=== PATIENT | male | born 1945 | race Caucasian/White ===

== ENCOUNTER 2021-12-15 17:48 | Inpatient (IN) | payer OTHER ==
[~2021-12-15] VITALS: Ht 180.3 cm; Wt 102.1 kg
[2021-12-15 18:52] LABS: BASOPHILS % (AUTO) 0.5 % (0.0-5.0); EOSINOPHILS % (AUTO) 0.5 % (0.0-8.0); HEMATOCRIT 31.1 % (36-48); LYMPHOCYTES % (AUTO) 3.4 % (21.0-51.0); MEAN CORPUSCULAR HEMOGLOBIN 27.6 pg (27.0-33.0); MEAN CORPUSCULAR HGB CONC 31.2 g/dL (32.0-36.0); MEAN CORPUSCULAR VOLUME 88.4 fL (79-99); MONOCYTES % (AUTO) 7.6 % (3.0-13.0); NEUTROPHILS % (AUTO) 87.3 % (40.0-77.0); PLATELET COUNT (AUTO) 215 K/uL (130-400); RED BLOOD CELL COUNT(AUTO) 3.52 MIL/uL (4.00-5.50); RED CELL DISTRIBUTION WIDTH 14.6 % (11.0-15.5); WHITE BLOOD COUNT (AUTO) 9.8 K/uL (4.8-10.8)
[2021-12-15 19:03] LABS: INR 1.16 (0.85-1.15); PROTHROMBIN TIME 12.5 SEC (9.6-11.6)
[2021-12-15 19:04] LABS: PARTIAL THROMBOPLASTIN TIME 31.3 SEC (26.3-35.5)
[2021-12-15 19:09] LABS: CREATININE 1.4 mg/dL (0.5-1.5); POTASSIUM 4.4 mmol/L (3.5-5.1)
[2021-12-15 19:11] LABS: ALBUMIN 3.1 g/dL (3.5-5.0); BILIRUBIN,TOTAL 0.7 mg/dL (0.2-1.0); MAGNESIUM 2.2 mg/dL (1.80-2.40)
[2021-12-15 19:19] LABS: B-TYPE NATRIURETIC PEPTIDE 717 pg/mL (0-100)
[2021-12-15] MEDS ORDERED: POTASSIUM CHLORIDE 20MEQ/100ML 100 ML IV PRN (20:00)
[2021-12-15] MEDS ORDERED: LIDOCAINE HCL-MPF 1% 2ML VIAL IJ PRN (20:00)
[2021-12-15] MEDS: FUROSEMIDE 40MG VIAL IV SCH (20:00)
[2021-12-15] MEDS ORDERED: POTASSIUM CHLORIDE 10% ELIXIR 20 MEQ/15 ML UDCUP PO PRN (20:00)
[2021-12-15] MEDS ORDERED: KCL 20 MEQ ERTAB PO PRN (20:00)
[2021-12-15] MEDS ORDERED: DEXTROSE 50%-WATER 50 ML DISP.SYRIN IV PRN (20:00)
[2021-12-15 20:26] LABS: APPEARANCE,URINE Clear (CLEAR); BILIRUBIN,URINE Negative (NEGATIVE); COLOR,URINE Yellow (YELLOW); GLUCOSE, URINE (UA) Negative (NEGATIVE); KETONES,URINE Negative (NEGATIVE); LEUKOCYTE ESTERASE ,URINE Trace (NEGATIVE); NITRATE,URINE Negative (NEGATIVE); OCCULT BLOOD,URINE Negative (NEGATIVE); PH,URINE 5.5 (5.0-8.0); PROTEIN,URINE POS 1+ mg/dL (NEGATIVE); UROBILINOGEN,URINE 0.2 mg/dL (0.2-1.0)
[2021-12-15] MEDS: ZOSYN 3.375GM +NS 50ML IV SCH (20:30)
[2021-12-15 20:40] LABS: BACTERIA,URINE Rare /HPF (None Seen); RBC,URINE 0-1 /HPF (0-1)
[2021-12-15 20:41] LABS: SQUAMOUS EPITHELIAL CELL,UR Few /HPF (0-2)
[2021-12-15] MEDS: SIMVASTATIN 20 MG TABLET PO SCH (21:00)
[2021-12-15] MEDS: INSULIN R PO SS1 SQ SCH (21:00)
[2021-12-15] MEDS: PANTOPRAZOLE 40 MG/VIAL IVP SCH (21:00)
[2021-12-15] MEDS ORDERED: 0.9%NACL 50ML 50 ML IV ONE (21:22)
[2021-12-15] MEDS ORDERED: 0.9% NACL 250ML 250 ML ONE (21:24)
[2021-12-15 21:30] VITALS: BP 123/65
[2021-12-15] MEDS: ACETAMINOPHEN 325 MG TAB PO PRN (23:00)
[2021-12-15 23:30] VITALS: BP 82/42
[2021-12-16] VITALS (24 sets, daily range): BP systolic 73–155; BP diastolic 39–71
[2021-12-16] MEDS ORDERED: TAMS-1 PO (03:10)
[2021-12-16] MEDS ORDERED: SIMV80TA91 PO (03:10)
[2021-12-16] MEDS ORDERED: FURO80TA3 PO (03:10)
[2021-12-16] MEDS ORDERED: NAPR-1023 PO (03:10)
[2021-12-16] MEDS ORDERED: FINA5TAB41 PO (03:10)
[2021-12-16] MEDS ORDERED: NITR100C9 PO (03:10)
[2021-12-16] MEDS ORDERED: DOCU-280 PO (03:10)
[2021-12-16] MEDS ORDERED: FERR-72 PO (03:10)
[2021-12-16] MEDS ORDERED: LATA7.5D OP (03:10)
[2021-12-16] MEDS ORDERED: CEFD300C3 PO (03:10)
[2021-12-16] MEDS ORDERED: ASPI-449 PO (03:10)
[2021-12-16] MEDS ORDERED: POTA20PA32 PO (03:10)
[2021-12-16] MEDS ORDERED: GABA-533 PO (03:10)
[2021-12-16] MEDS ORDERED: METO-409 PO (03:10)
[2021-12-16] MEDS ORDERED: POTA-202 PO (03:10)
[2021-12-16] MEDS: FUROSEMIDE 40MG VIAL IV SCH (05:13)
[2021-12-16] MEDS ORDERED: 0.9%NACL 50ML 50 ML IV ONE (05:18)
[2021-12-16] MEDS: ZOSYN 3.375GM +NS 50ML IV SCH (05:30)
[2021-12-16 05:32] LABS: % IRON SATURATION 3.3 % (22-44)
[2021-12-16 05:36] LABS: MEAN CORPUSCULAR HEMOGLOBIN 27.4 pg (27.0-33.0); MEAN CORPUSCULAR HGB CONC 31.9 g/dL (32.0-36.0); PLATELET COUNT (AUTO) 175 K/uL (130-400); RED BLOOD CELL COUNT(AUTO) 3.14 MIL/uL (4.00-5.50); RED CELL DISTRIBUTION WIDTH 14.4 % (11.0-15.5); WHITE BLOOD COUNT (AUTO) 14.3 K/uL (4.8-10.8)
[2021-12-16 05:48] LABS: ALBUMIN 2.6 g/dL (3.5-5.0); BILIRUBIN,TOTAL 0.8 mg/dL (0.2-1.0); CREATININE 1.7 mg/dL (0.5-1.5); MAGNESIUM 2.2 mg/dL (1.80-2.40); POTASSIUM 4.6 mmol/L (3.5-5.1); THYROID STIMULATING HORMONE 0.08 uIU/mL (0.36-3.74)
[2021-12-16 05:57] LABS: BAND NEUTROPHILS % (MANUAL) 3 % (0-2); EOSINOPHILS % (MANUAL) 1 % (1-6); LYMPHOCYTES % (MANUAL) 3 % (22-44); MAN.DIFF COMMENT-IMPRESSION MANUAL DIFFERENTIAL; MONOCYTES % (MANUAL) 7 % (2-9); SEGMENTED NEUTROPHILS % 86 % (40-70)
[2021-12-16 05:58] LABS: PLATELET MORPHOLOGY COMMENT ADEQUATE
[2021-12-16] MEDS: ACETAMINOPHEN 325 MG TAB PO PRN ×2 (06:11→12:33)
[2021-12-16] MEDS: INSULIN R PO SS1 SQ SCH ×4 (06:12→21:00)
[2021-12-16] MEDS ORDERED: VANCOMYCIN PROTOCOL PER PHARMACY IV SCH (08:30)
[2021-12-16] MEDS: PANTOPRAZOLE 40 MG/VIAL IVP SCH ×2 (08:37→20:41)
[2021-12-16] MEDS ORDERED: NOREPINEPHRIN 4MG/NS 250ML 250 ML IV SCH (09:00)
[2021-12-16] MEDS ORDERED: COMPOUND IV REFRIGERATED 1 EACH IVSOLN MISC PRN (09:00)
[2021-12-16] MEDS ORDERED: METOPROLOL SUCCINATE 50 MG TAB.SR.24H PO SCH (09:00)
[2021-12-16] MEDS: MEROPENEM 1 GM VIAL IVP SCH ×2 (10:25→20:41)
[2021-12-16] MEDS: VANCOMYCIN 1.25GM/NS 250ML IVPB SCH ×2 (10:27)
[2021-12-16 12:12] LABS: HEMATOCRIT 28.2 % (36-48)
[2021-12-16] MEDS: SIMVASTATIN 20 MG TABLET PO SCH (20:41)
[2021-12-17] VITALS (35 sets, daily range): BP systolic 95–137; BP diastolic 36–68
[2021-12-17] MEDS: ACETAMINOPHEN 325 MG TAB PO PRN ×3 (02:24→23:11)
[2021-12-17 06:17] LABS: BASOPHILS % (AUTO) 0.3 % (0.0-5.0); HEMATOCRIT 26.2 % (36-48); LYMPHOCYTES % (AUTO) 1.8 % (21.0-51.0); MEAN CORPUSCULAR HEMOGLOBIN 27.8 pg (27.0-33.0); MEAN CORPUSCULAR HGB CONC 33.2 g/dL (32.0-36.0); MEAN CORPUSCULAR VOLUME 83.7 fL (79-99); MONOCYTES % (AUTO) 3.3 % (3.0-13.0); NEUTROPHILS % (AUTO) 92.9 % (40.0-77.0); PLATELET COUNT (AUTO) 140 K/uL (130-400); RED BLOOD CELL COUNT(AUTO) 3.13 MIL/uL (4.00-5.50); RED CELL DISTRIBUTION WIDTH 14.6 % (11.0-15.5); WHITE BLOOD COUNT (AUTO) 12.6 K/uL (4.8-10.8)
[2021-12-17] MEDS: INSULIN R PO SS1 SQ SCH ×4 (06:33→20:30)
[2021-12-17 06:36] LABS: ALBUMIN 2.4 g/dL (3.5-5.0); BILIRUBIN,TOTAL 0.8 mg/dL (0.2-1.0); CREATININE 1.6 mg/dL (0.5-1.5); MAGNESIUM 2.2 mg/dL (1.80-2.40); POTASSIUM 4.3 mmol/L (3.5-5.1); TOTAL PROTEIN, SERUM 6.8 g/dL (6.0-8.3)
[2021-12-17 06:49] LABS: CRP QUANTITATIVE 238.8 mg/L (0.00-9.0)
[2021-12-17] MEDS: PANTOPRAZOLE 40 MG/VIAL IVP SCH ×2 (08:54→20:29)
[2021-12-17] MEDS: MEROPENEM 1 GM VIAL IVP SCH ×2 (08:54→20:29)
[2021-12-17] MEDS: VANCOMYCIN 1.25GM/NS 250ML IVPB SCH ×2 (08:54)
[2021-12-17] MEDS ORDERED: ALBUMIN (HUMAN) 25% 100 ML IV ONE (15:30)
[2021-12-17] MEDS: MIDODRINE HCL 5 MG TABLET PO SCH ×2 (15:38→20:29)
[2021-12-17] MEDS: IPRATROPIUM/ALBUTEROL SULFATE 3 ML SOLUTION IH SCH ×2 (18:39→23:10)
[2021-12-17] MEDS: SIMVASTATIN 20 MG TABLET PO SCH (20:29)
[2021-12-18] VITALS (29 sets, daily range): BP systolic 99–142; BP diastolic 37–65
[2021-12-18] MEDS: INSULIN R PO SS1 SQ SCH ×4 (06:09→20:04)
[2021-12-18 06:11] LABS: BASOPHILS % (AUTO) 0.3 % (0.0-5.0); HEMATOCRIT 24.3 % (36-48); LYMPHOCYTES % (AUTO) 7.8 % (21.0-51.0); MEAN CORPUSCULAR HEMOGLOBIN 27.2 pg (27.0-33.0); MEAN CORPUSCULAR HGB CONC 31.7 g/dL (32.0-36.0); MEAN CORPUSCULAR VOLUME 85.9 fL (79-99); MONOCYTES % (AUTO) 7.1 % (3.0-13.0); NEUTROPHILS % (AUTO) 81.2 % (40.0-77.0); PLATELET COUNT (AUTO) 114 K/uL (130-400); RED BLOOD CELL COUNT(AUTO) 2.83 MIL/uL (4.00-5.50); RED CELL DISTRIBUTION WIDTH 14.7 % (11.0-15.5); WHITE BLOOD COUNT (AUTO) 9.4 K/uL (4.8-10.8)
[2021-12-18 06:25] LABS: ALBUMIN 2.3 g/dL (3.5-5.0); BILIRUBIN,TOTAL 0.7 mg/dL (0.2-1.0); CREATININE 1.5 mg/dL (0.5-1.5); MAGNESIUM 2.4 mg/dL (1.80-2.40); POTASSIUM 3.9 mmol/L (3.5-5.1); TOTAL PROTEIN, SERUM 6.3 g/dL (6.0-8.3)
[2021-12-18] MEDS: IPRATROPIUM/ALBUTEROL SULFATE 3 ML SOLUTION IH SCH ×4 (06:25→23:37)
[2021-12-18 06:36] LABS: CRP QUANTITATIVE 209.6 mg/L (0.00-9.0)
[2021-12-18] MEDS: ACETAMINOPHEN 325 MG TAB PO PRN (06:57)
[2021-12-18] MEDS: MEROPENEM 1 GM VIAL IVP SCH ×2 (08:38→20:02)
[2021-12-18] MEDS: PANTOPRAZOLE 40 MG/VIAL IVP SCH ×2 (08:38→20:02)
[2021-12-18] MEDS: MIDODRINE HCL 5 MG TABLET PO SCH ×3 (08:39→20:02)
[2021-12-18] MEDS: VANCOMYCIN 1.25GM/NS 250ML IVPB SCH ×2 (08:41)
[2021-12-18] MEDS ORDERED: PHARMACY COMMUNICATION MISC SCH (11:00)
[2021-12-18] MEDS: SIMVASTATIN 20 MG TABLET PO SCH (20:03)
[2021-12-19] VITALS (15 sets, daily range): BP systolic 105–148; BP diastolic 43–91
[2021-12-19] MEDS: ACETAMINOPHEN 325 MG TAB PO PRN ×2 (00:59→14:57)
[2021-12-19] MEDS: IPRATROPIUM/ALBUTEROL SULFATE 3 ML SOLUTION IH SCH (06:00)
[2021-12-19] MEDS: INSULIN R PO SS1 SQ SCH ×4 (06:20→21:00)
[2021-12-19 07:56] LABS: HEMATOCRIT 25.1 % (36-48)
[2021-12-19] MEDS: ASPIRIN 81 MG EC TAB PO SCH (08:10)
[2021-12-19] MEDS: MEROPENEM 1 GM VIAL IVP SCH ×3 (08:25→23:46)
[2021-12-19] MEDS: MIDODRINE HCL 5 MG TABLET PO SCH ×3 (08:25→21:06)
[2021-12-19] MEDS: PANTOPRAZOLE 40 MG/VIAL IVP SCH ×2 (08:25→21:07)
[2021-12-19] MEDS ORDERED: LIDOCAINE HCL 2% VISCOUS 15 ML UDCUP PO SCH (08:30)
[2021-12-19] MEDS ORDERED: FENTANYL CITRATE PF 50 MCG/1 ML 2ML VIAL IVP SCH (08:30)
[2021-12-19] MEDS ORDERED: MIDAZOLAM HCL 1 MG/ML 2ML VIAL IVP SCH (08:30)
[2021-12-19] MEDS: VANCOMYCIN 1.25GM/NS 250ML IVPB SCH ×2 (08:45)
[2021-12-19] MEDS ORDERED: IPRATROPIUM/ALBUTEROL SULFATE 3 ML SOLUTION IH PRN (10:00)
[2021-12-19] MEDS ORDERED: LIDOCAINE HCL 2% VISCOUS 15 ML UDCUP ONE (11:46)
[2021-12-19] MEDS ORDERED: 0.9%NACL 1000ML 1,000 ML IV ONE (12:27)
[2021-12-19 12:59] LABS: CREATININE 1.3 mg/dL (0.5-1.5)
[2021-12-19] MEDS: FUROSEMIDE 20MG VIAL IV SCH (18:28)
[2021-12-19] MEDS: SIMVASTATIN 20 MG TABLET PO SCH (21:05)
[2021-12-20 01:11] VITALS: BP 122/68
[2021-12-20 03:58] VITALS: BP 126/57
[2021-12-20] MEDS: FUROSEMIDE 20MG VIAL IV SCH ×2 (05:30→18:11)
[2021-12-20] MEDS: INSULIN R PO SS1 SQ SCH ×4 (06:42→21:00)
[2021-12-20 07:26] LABS: HEMATOCRIT 25.6 % (42-54); MEAN CORPUSCULAR HEMOGLOBIN 27.2 pg (27.0-33.0); MEAN CORPUSCULAR VOLUME 84.8 fL (79-99); PLATELET COUNT (AUTO) 120 K/uL (130-400); RED BLOOD CELL COUNT(AUTO) 3.02 MIL/uL (4.50-6.20); RED CELL DISTRIBUTION WIDTH 14.7 % (11.0-15.5); WHITE BLOOD COUNT (AUTO) 8.5 K/uL (4.8-10.8)
[2021-12-20 07:42] LABS: ALBUMIN 2.5 g/dL (3.5-5.0); BILIRUBIN,TOTAL 1.1 mg/dL (0.2-1.0); CREATININE 1.3 mg/dL (0.5-1.5); POTASSIUM 3.9 mmol/L (3.5-5.1); TOTAL PROTEIN, SERUM 6.9 g/dL (6.0-8.3)
[2021-12-20 07:46] LABS: EOSINOPHILS % (MANUAL) 5 % (1-6); LYMPHOCYTES % (MANUAL) 10 % (22-44); MAN.DIFF COMMENT-IMPRESSION MANUAL DIFFERENTIAL; MONOCYTES % (MANUAL) 6 % (2-9); SEGMENTED NEUTROPHILS % 79 % (40-70)
[2021-12-20 07:47] LABS: PLATELET MORPHOLOGY COMMENT SLIGHTLY DECREASED
[2021-12-20 08:00] VITALS: BP 126/54
[2021-12-20] MEDS: ASPIRIN 81 MG EC TAB PO SCH (10:06)
[2021-12-20] MEDS: PANTOPRAZOLE 40 MG/VIAL IVP SCH ×2 (10:06→20:54)
[2021-12-20] MEDS: MIDODRINE HCL 5 MG TABLET PO SCH ×2 (10:06→14:00)
[2021-12-20] MEDS: MEROPENEM 1 GM VIAL IVP SCH ×2 (10:06→16:56)
[2021-12-20 12:00] VITALS: BP 135/56
[2021-12-20 16:00] VITALS: BP 138/66
[2021-12-20] MEDS: HEPARIN 5,000 UNIT VIAL SQ SCH (16:57)
[2021-12-20 19:43] VITALS: BP 135/73
[2021-12-20] MEDS: SIMVASTATIN 20 MG TABLET PO SCH (20:52)
[2021-12-21 00:28] VITALS: BP 129/61
[2021-12-21] MEDS: MEROPENEM 1 GM VIAL IVP SCH ×2 (00:42→10:06)
[2021-12-21 04:19] VITALS: BP 150/63
[2021-12-21] MEDS: HEPARIN 5,000 UNIT VIAL SQ SCH ×2 (04:30→16:47)
[2021-12-21] MEDS: FUROSEMIDE 20MG VIAL IV SCH (05:40)
[2021-12-21] MEDS: INSULIN R PO SS1 SQ SCH (07:23)
[2021-12-21 08:00] VITALS: BP 147/68
[2021-12-21 08:31] LABS: INR 1.22 (0.85-1.15); PROTHROMBIN TIME 13.1 SEC (9.6-11.6)
[2021-12-21 08:33] LABS: PARTIAL THROMBOPLASTIN TIME 35.5 SEC (26.3-35.5)
[2021-12-21 09:29] LABS: CREATININE 1.2 mg/dL (0.5-1.5); POTASSIUM 3.1 mmol/L (3.5-5.1)
[2021-12-21] MEDS: ASPIRIN 81 MG EC TAB PO SCH (10:03)
[2021-12-21] MEDS: PANTOPRAZOLE 40 MG/VIAL IVP SCH (10:04)
[2021-12-21 11:59] VITALS: BP_SYST 101; BP_SYST 139; BP_DIAS 58; BP_DIAS 69
[2021-12-21] MEDS ORDERED: FUROSEMIDE 20MG VIAL IV SCH (12:30)
[2021-12-21 16:00] VITALS: BP 168/75
[2021-12-21 19:30] VITALS: BP 140/71
[2021-12-22] MEDS ORDERED: FUROSEMIDE 20 MG TABLET PO SCH (09:00)
[2021-12-25] MEDS ORDERED: MERO1PIG IV (07:57)
[2021-12-25] MEDS ORDERED: ATOR20TA PO (07:57)
[2021-12-25] MEDS ORDERED: FURO20I IV (07:57)
[2021-12-25] MEDS ORDERED: BISA5TAB12 PO (07:57)
== END 2021-12-21 19:53 | DRG 871 ==
LOC: EDH 17:48 → EDHIP 17:49 → EDSEX 17:49 → 2AH 20:44 → 2DH 12-16 09:41
PROVIDERS: ADMIT Internal Medicine; ATTEND Internal Medicine
PROC: 5A09357 Assistance with Respiratory Ventilation, Less than 24 Consecutive Hours, Continuous Positive Airway Pressure (ICD-10-PCS; principal; 2021-12-16)
PROC: 5A09357 Assistance with Respiratory Ventilation, Less than 24 Consecutive Hours, Continuous Positive Airway Pressure (ICD-10-PCS; 2021-12-17)
PROC: 5A09357 Assistance with Respiratory Ventilation, Less than 24 Consecutive Hours, Continuous Positive Airway Pressure (ICD-10-PCS; 2021-12-18)
PROC: 5A09357 Assistance with Respiratory Ventilation, Less than 24 Consecutive Hours, Continuous Positive Airway Pressure (ICD-10-PCS; 2021-12-19)
PROC: B246ZZ4 Ultrasonography of Right and Left Heart, Transesophageal (ICD-10-PCS; 2021-12-19)
DX: A41.50 Gram-negative sepsis, unspecified (principal); I50.33 Acute on chronic diastolic (congestive) heart failure; R65.21 Severe sepsis with septic shock; I33.0 Acute and subacute infective endocarditis; N17.9 Acute kidney failure, unspecified; N39.0 Urinary tract infection, site not specified; Z16.24 Resistance to multiple antibiotics; E87.1 Hypo-osmolality and hyponatremia; T82.6XXA Infection and inflammatory reaction due to cardiac valve prosthesis, initial encounter; I11.0 Hypertensive heart disease with heart failure; D64.9 Anemia, unspecified; E78.5 Hyperlipidemia, unspecified; I44.1 Atrioventricular block, second degree; I48.0 Paroxysmal atrial fibrillation; J44.9 Chronic obstructive pulmonary disease, unspecified; I25.10 Atherosclerotic heart disease of native coronary artery without angina pectoris; B96.1 Klebsiella pneumoniae [K. pneumoniae] as the cause of diseases classified elsewhere; R53.81 Other malaise; E87.6 Hypokalemia; Y83.1 Surgical operation with implant of artificial internal device as the cause of abnormal reaction of the patient, or of later complication, without mention of misadventure at the time of the procedure; E66.9 Obesity, unspecified; Z68.31 Body mass index [BMI] 31.0-31.9, adult; Z79.2 Long term (current) use of antibiotics; Z95.3 Presence of xenogenic heart valve; Z87.440 Personal history of urinary (tract) infections; Y92.89 Other specified places as the place of occurrence of the external cause
CPT/HCPCS: 36415; 71045; 74176; 76770; 80048; 80053; 80061; 80202; 81001; 82728; 82948; 83010; 83036; 83540; 83550; 83605; 83615; 83735; 83880; 84145; 84439; 84443; 84481; 85014; 85018; 85025; 85045; 85610; 85651; 85730; 86140; 86850; 86900; 86901; 87040; 87077; 87088; 87186; 87635; 87804; 93005; 93306; 93312; 93970; 94640; 94664; 99152; 99153; C9113; G0378; J1644; J1815; J1940; J2185; J2250; J2543; J3010; J3370; J3490; J7030; J7050; P9046

== ENCOUNTER 2022-02-06 22:22 | Inpatient (IN) | payer MEDICARE, OTHER ==
[~2022-02-06] VITALS: Ht 154.9 cm; Wt 93.6 kg
[~2022-02-06 22:22] MED LIST: ASPI-449 PO; ATOR20TA PO; BISA5TAB12 PO; DOCU-280 PO; FINA5TAB41 PO; FURO20I IV; GABA-533 PO; LATA7.5D OP; MERO1PIG IV; POTA-202 PO; TAMS-1 PO
[2022-02-06 22:50] VITALS: BP 148/88
[2022-02-06] MEDS ORDERED: POTA-183 PO (23:38)
[2022-02-06] MEDS ORDERED: PANT40TA55 PO (23:38)
[2022-02-06] MEDS ORDERED: MERO500V23 IV (23:38)
[2022-02-06] MEDS ORDERED: DOCU-116 PO (23:38)
[2022-02-06] MEDS ORDERED: LOPE2CAP PO (23:38)
[2022-02-06] MEDS ORDERED: CHOL1CRY2 MC (23:38)
[2022-02-06] MEDS ORDERED: GUAI5LIQ10 PO (23:38)
[2022-02-06] MEDS ORDERED: LACT10SO9 PO (23:38)
[2022-02-06] MEDS ORDERED: TAMS-1 PO (23:38)
[2022-02-06] MEDS ORDERED: TRAM50TA4 PO (23:38)
[2022-02-06] MEDS ORDERED: SIME80TA12 PO (23:38)
[2022-02-06] MEDS ORDERED: SENN8.6T32 PO (23:38)
[2022-02-06] MEDS ORDERED: ALBUHFA IH (23:38)
[2022-02-06] MEDS ORDERED: FURO40TA7 PO (23:38)
[2022-02-06] MEDS ORDERED: BISA10SU61 RC (23:38)
[2022-02-06] MEDS ORDERED: ACET650T24 PO (23:38)
[2022-02-06] MEDS ORDERED: ONDA22I IM (23:38)
[2022-02-06] MEDS ORDERED: VITS42.53 TP (23:38)
[2022-02-06] MEDS ORDERED: ATOR20TA65 PO (23:38)
[2022-02-06 23:43] VITALS: BP 112/66
[2022-02-07] MEDS ORDERED: ACETAMINOPHEN 650 MG PO PRN
[2022-02-07] MEDS ORDERED: DOCUSATE SODIUM 100 MG CAP PO PRN
[2022-02-07] MEDS ORDERED: LACTULOSE 20 GM/30 ML UDCUP PO PRN
[2022-02-07] MEDS ORDERED: FUROSEMIDE 40MG VIAL IV ONE
[2022-02-07 00:20] LABS: POTASSIUM 3.6 mmol/L (3.5-5.1)
[2022-02-07] MEDS: MEROPENEM 500 MG VIAL IV SCH ×4 (00:22→17:54)
[2022-02-07 00:25] LABS: ALBUMIN 2.8 g/dL (3.5-5.0); TOTAL PROTEIN, SERUM 6.8 g/dL (6.0-8.3)
[2022-02-07 00:30] LABS: BASOPHILS % (AUTO) 0.9 % (0.0-5.0); EOSINOPHILS % (AUTO) 2.9 % (0.0-8.0); HEMATOCRIT 29.8 % (42-54); LYMPHOCYTES % (AUTO) 13.1 % (21.0-51.0); MEAN CORPUSCULAR HEMOGLOBIN 27.1 pg (27.0-33.0); MEAN CORPUSCULAR HGB CONC 31.2 g/dL (32.0-36.0); MEAN CORPUSCULAR VOLUME 86.9 fL (79-99); MONOCYTES % (AUTO) 16.2 % (3.0-13.0); NEUTROPHILS % (AUTO) 66.6 % (40.0-77.0); PLATELET COUNT (AUTO) 293 K/uL (130-400); RED BLOOD CELL COUNT(AUTO) 3.43 MIL/uL (4.50-6.20); RED CELL DISTRIBUTION WIDTH 15.9 % (11.0-15.5); WHITE BLOOD COUNT (AUTO) 5.9 K/uL (4.8-10.8)
[2022-02-07 00:40] LABS: B-TYPE NATRIURETIC PEPTIDE 450 pg/mL (0-100)
[2022-02-07 01:16] LABS: APPEARANCE,URINE Clear (CLEAR); BILIRUBIN,URINE Negative (NEGATIVE); COLOR,URINE Yellow (YELLOW); GLUCOSE, URINE (UA) Negative (NEGATIVE); KETONES,URINE Negative (NEGATIVE); LEUKOCYTE ESTERASE ,URINE Trace (NEGATIVE); NITRATE,URINE Negative (NEGATIVE); OCCULT BLOOD,URINE Negative (NEGATIVE); PROTEIN,URINE Negative (NEGATIVE); UROBILINOGEN,URINE 0.2 mg/dL (0.2-1.0)
[2022-02-07 01:27] LABS: BACTERIA,URINE Few /HPF (None Seen); RBC,URINE None Seen /HPF (0-1); WBC,URINE None Seen /HPF (0-1); YEAST,URINE BUDDING Moderate /HPF (None Seen)
[2022-02-07 03:28] VITALS: BP 125/76
[2022-02-07] MEDS: ALBUTEROL INHALER 90MCG/INH IH SCH ×3 (06:00→12:00)
[2022-02-07] MEDS ORDERED: ACETAMINOPHEN 650MG ER TAB PO PRN (06:30)
[2022-02-07] MEDS ORDERED: GUAIFENESIN-DM 200/20 MG 10 ML PO PRN (06:30)
[2022-02-07] MEDS: TAMSULOSIN HCL 0.4 MG CAP.ER.24H PO SCH (08:17)
[2022-02-07] MEDS: ENOXAPARIN SODIUM 30 MG/0.3 ML SQ SCH (08:18)
[2022-02-07] MEDS: KCL 20 MEQ ERTAB PO SCH (08:18)
[2022-02-07] MEDS: FAMOTIDINE 20MG TAB PO SCH ×2 (08:18→20:43)
[2022-02-07] MEDS: PANTOPRAZOLE 40 MG TAB DR PO SCH (08:18)
[2022-02-07] MEDS: CHOLECALCIFEROL PO SCH (08:19)
[2022-02-07 08:41] VITALS: BP 126/71
[2022-02-07 11:19] LABS: BASOPHILS % (AUTO) 0.9 % (0.0-5.0); EOSINOPHILS % (AUTO) 2.5 % (0.0-8.0); HEMATOCRIT 33.4 % (42-54); MEAN CORPUSCULAR HEMOGLOBIN 27.2 pg (27.0-33.0); MEAN CORPUSCULAR HGB CONC 30.8 g/dL (32.0-36.0); MEAN CORPUSCULAR VOLUME 88.1 fL (79-99); MONOCYTES % (AUTO) 15.2 % (3.0-13.0); NEUTROPHILS % (AUTO) 68.1 % (40.0-77.0); PLATELET COUNT (AUTO) 317 K/uL (130-400); RED BLOOD CELL COUNT(AUTO) 3.79 MIL/uL (4.50-6.20); RED CELL DISTRIBUTION WIDTH 15.8 % (11.0-15.5); WHITE BLOOD COUNT (AUTO) 6.3 K/uL (4.8-10.8)
[2022-02-07 11:30] LABS: MAGNESIUM 1.9 mg/dL (1.80-2.40); POTASSIUM 3.6 mmol/L (3.5-5.1)
[2022-02-07 12:19] VITALS: BP 109/71
[2022-02-07] MEDS ORDERED: ALBUTEROL 0.083% 2.5 MG/3 ML INH IH SCH (13:00)
[2022-02-07 16:00] VITALS: BP 127/70
[2022-02-07] MEDS ORDERED: FUROSEMIDE 40MG VIAL IV SCH (18:00)
[2022-02-07] MEDS: FUROSEMIDE 40MG VIAL IV SCH (18:42)
[2022-02-07 19:39] VITALS: BP 111/57
[2022-02-07] MEDS: ATORVASTATIN 20 MG TABLET PO SCH (20:43)
[2022-02-07 23:15] VITALS: BP 103/64
[2022-02-08] MEDS: MEROPENEM 500 MG VIAL IV SCH ×4 (00:43→17:48)
[2022-02-08] MEDS: FUROSEMIDE 40MG VIAL IV SCH ×3 (02:52→17:48)
[2022-02-08 03:46] VITALS: BP 114/64
[2022-02-08 07:20] LABS: BASOPHILS % (AUTO) 0.8 % (0.0-5.0); EOSINOPHILS % (AUTO) 2.8 % (0.0-8.0); HEMATOCRIT 28.9 % (42-54); LYMPHOCYTES % (AUTO) 16.9 % (21.0-51.0); MEAN CORPUSCULAR HEMOGLOBIN 27.1 pg (27.0-33.0); MEAN CORPUSCULAR HGB CONC 31.5 g/dL (32.0-36.0); MONOCYTES % (AUTO) 15.9 % (3.0-13.0); NEUTROPHILS % (AUTO) 63.2 % (40.0-77.0); PLATELET COUNT (AUTO) 267 K/uL (130-400); RED BLOOD CELL COUNT(AUTO) 3.36 MIL/uL (4.50-6.20); RED CELL DISTRIBUTION WIDTH 15.9 % (11.0-15.5)
[2022-02-08 07:35] LABS: ALBUMIN 2.7 g/dL (3.5-5.0); MAGNESIUM 2.1 mg/dL (1.80-2.40); POTASSIUM 3.6 mmol/L (3.5-5.1); TOTAL PROTEIN, SERUM 6.9 g/dL (6.0-8.3)
[2022-02-08 08:59] VITALS: BP 112/65
[2022-02-08] MEDS: CHOLECALCIFEROL PO SCH (09:00)
[2022-02-08] MEDS: ASPIRIN 81 MG EC TAB PO SCH (09:27)
[2022-02-08] MEDS: ENOXAPARIN SODIUM 30 MG/0.3 ML SQ SCH (09:28)
[2022-02-08] MEDS: FAMOTIDINE 20MG TAB PO SCH ×2 (09:28→21:50)
[2022-02-08] MEDS: PANTOPRAZOLE 40 MG TAB DR PO SCH (09:28)
[2022-02-08] MEDS: TAMSULOSIN HCL 0.4 MG CAP.ER.24H PO SCH (09:28)
[2022-02-08] MEDS: KCL 20 MEQ ERTAB PO SCH (09:28)
[2022-02-08] MEDS: ALBUTEROL 0.083% 2.5 MG/3 ML INH IH PRN ×2 (10:51→18:28)
[2022-02-08 12:30] VITALS: BP 112/68
[2022-02-08] MEDS ORDERED: LIDOCAINE HCL-MPF 1% 2ML VIAL IV PRN (15:00)
[2022-02-08] MEDS ORDERED: POTASSIUM CHLORIDE 10% ELIXIR 20 MEQ/15 ML UDCUP PO PRN (15:00)
[2022-02-08] MEDS ORDERED: POTASSIUM CHLORIDE 20MEQ/100ML 100 ML IV PRN (15:00)
[2022-02-08] MEDS ORDERED: METOPROLOL SUCCINATE 50 MG TAB.SR.24H PO ONE ×2 (16:00→17:44)
[2022-02-08] MEDS ORDERED: ALTEPLASE 2MG VIAL 2 MG/VIAL VIAL IVCATH SCH (16:30)
[2022-02-08 16:39] VITALS: BP 94/59
[2022-02-08] MEDS: KCL 20 MEQ ERTAB PO PRN (17:49)
[2022-02-08 19:45] VITALS: BP 98/56
[2022-02-08] MEDS: ATORVASTATIN 20 MG TABLET PO SCH (21:50)
[2022-02-09] VITALS (7 sets, daily range): BP systolic 93–120; BP diastolic 53–71
[2022-02-09] MEDS: MEROPENEM 500 MG VIAL IV SCH (00:42)
[2022-02-09] MEDS: FUROSEMIDE 40MG VIAL IV SCH (03:06)
[2022-02-09 05:06] LABS: HEMATOCRIT 27.7 % (42-54); MEAN CORPUSCULAR HEMOGLOBIN 26.6 pg (27.0-33.0); MEAN CORPUSCULAR HGB CONC 30.7 g/dL (32.0-36.0); MEAN CORPUSCULAR VOLUME 86.6 fL (79-99); RED BLOOD CELL COUNT(AUTO) 3.2 MIL/uL (4.50-6.20); RED CELL DISTRIBUTION WIDTH 15.8 % (11.0-15.5); WHITE BLOOD COUNT (AUTO) 4.9 K/uL (4.8-10.8)
[2022-02-09 05:15] LABS: CREATININE 1.1 mg/dL (0.5-1.5); POTASSIUM 3.5 mmol/L (3.5-5.1)
[2022-02-09] MEDS: KCL 20 MEQ ERTAB PO PRN (06:24)
[2022-02-09] MEDS: ASPIRIN 81 MG EC TAB PO SCH (08:48)
[2022-02-09] MEDS: KCL 20 MEQ ERTAB PO SCH (08:48)
[2022-02-09] MEDS: PANTOPRAZOLE 40 MG TAB DR PO SCH (08:48)
[2022-02-09] MEDS: TAMSULOSIN HCL 0.4 MG CAP.ER.24H PO SCH (08:48)
[2022-02-09] MEDS: ENOXAPARIN SODIUM 30 MG/0.3 ML SQ SCH (08:48)
[2022-02-09] MEDS: METOPROLOL SUCCINATE 50 MG TAB.SR.24H PO SCH (08:48)
[2022-02-09] MEDS: FAMOTIDINE 20MG TAB PO SCH ×2 (08:48→21:00)
[2022-02-09] MEDS: CHOLECALCIFEROL PO SCH (08:49)
[2022-02-09] MEDS: FUROSEMIDE 40 MG TABLET PO SCH (18:25)
[2022-02-09] MEDS: ATORVASTATIN 20 MG TABLET PO SCH (21:00)
[2022-02-10 03:00] VITALS: BP 106/69
[2022-02-10 05:21] LABS: HEMATOCRIT 27.9 % (42-54); MEAN CORPUSCULAR HEMOGLOBIN 27.6 pg (27.0-33.0); MEAN CORPUSCULAR HGB CONC 31.9 g/dL (32.0-36.0); MEAN CORPUSCULAR VOLUME 86.6 fL (79-99); RED BLOOD CELL COUNT(AUTO) 3.22 MIL/uL (4.50-6.20); RED CELL DISTRIBUTION WIDTH 15.9 % (11.0-15.5)
[2022-02-10 05:33] LABS: POTASSIUM 3.9 mmol/L (3.5-5.1)
[2022-02-10] MEDS: ALBUTEROL 0.083% 2.5 MG/3 ML INH IH PRN (07:13)
[2022-02-10 08:46] VITALS: BP 115/66
[2022-02-10] MEDS: CHOLECALCIFEROL PO SCH (09:00)
[2022-02-10] MEDS ORDERED: FLUCONAZOLE 100 MG TAB PO SCH (09:00)
[2022-02-10] MEDS: FAMOTIDINE 20MG TAB PO SCH (09:00)
[2022-02-10] MEDS: ASPIRIN 81 MG EC TAB PO SCH (09:08)
[2022-02-10] MEDS: TAMSULOSIN HCL 0.4 MG CAP.ER.24H PO SCH (09:09)
[2022-02-10] MEDS: METOPROLOL SUCCINATE 50 MG TAB.SR.24H PO SCH (09:09)
[2022-02-10] MEDS: KCL 20 MEQ ERTAB PO SCH (09:09)
[2022-02-10] MEDS: FUROSEMIDE 40 MG TABLET PO SCH (09:09)
[2022-02-10] MEDS: PANTOPRAZOLE 40 MG TAB DR PO SCH (09:09)
[2022-02-10] MEDS: ENOXAPARIN SODIUM 30 MG/0.3 ML SQ SCH (09:10)
[2022-02-10] MEDS ORDERED: METO-408 PO (11:06)
[2022-02-10 12:13] VITALS: BP 101/61
== END 2022-02-10 14:50 | disposition home or self-care (01) | DRG 314 ==
LOC: 2AH 22:22
PROVIDERS: ADMIT Hospitalist; ATTEND Hospitalist
DX: T82.6XXA Infection and inflammatory reaction due to cardiac valve prosthesis, initial encounter (principal); I33.0 Acute and subacute infective endocarditis; I50.43 Acute on chronic combined systolic (congestive) and diastolic (congestive) heart failure; E44.0 Moderate protein-calorie malnutrition; Z68.41 Body mass index [BMI] 40.0-44.9, adult; I44.2 Atrioventricular block, complete; I47.2 Ventricular tachycardia; Z16.24 Resistance to multiple antibiotics; I31.4 Cardiac tamponade; I11.0 Hypertensive heart disease with heart failure; I48.0 Paroxysmal atrial fibrillation; E66.9 Obesity, unspecified; D64.9 Anemia, unspecified; R53.81 Other malaise; E78.00 Pure hypercholesterolemia, unspecified; Y83.8 Other surgical procedures as the cause of abnormal reaction of the patient, or of later complication, without mention of misadventure at the time of the procedure; Z95.0 Presence of cardiac pacemaker; Z95.2 Presence of prosthetic heart valve; E78.5 Hyperlipidemia, unspecified; G47.33 Obstructive sleep apnea (adult) (pediatric); Z79.899 Other long term (current) drug therapy; Z83.3 Family history of diabetes mellitus; Z82.49 Family history of ischemic heart disease and other diseases of the circulatory system; Z83.438 Family history of other disorder of lipoprotein metabolism and other lipidemia; Z95.1 Presence of aortocoronary bypass graft; Y92.89 Other specified places as the place of occurrence of the external cause; Z68.39 Body mass index [BMI] 39.0-39.9, adult
CPT/HCPCS: 36415; 71045; 71250; 80048; 80053; 81001; 82728; 83540; 83550; 83735; 83880; 85025; 85027; 87040; 87088; 93306; 94640; 94664; G0378; J1650; J1940; J2185; J2997